=== PATIENT | male | born 1960 | race Caucasian/White ===

== ENCOUNTER 2018-12-27 19:33 | Emergency (ER) | payer MEDICARE, OTHER ==
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
[2018-12-27 20:02] VITALS: BP 128/86
== END 2018-12-27 19:50 | disposition home or self-care (01) ==
LOC: ED 19:33
DX: F10.929 Alcohol use, unspecified with intoxication, unspecified (principal); V49.40XA Driver injured in collision with unspecified motor vehicles in traffic accident, initial encounter; Y90.9 Presence of alcohol in blood, level not specified
CPT/HCPCS: 99281; 99282